=== PATIENT | female | born 1955 | race Caucasian/White ===

== ENCOUNTER 2016-11-24 14:34 | Emergency (ER) | payer OTHER, MEDICARE ==
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
[2016-11-24] MEDS ORDERED: RX INFO: IV CONTRAST WAS GIVEN 1 EACH MISC MISCELLANE PRN (18:04)
[2016-11-24] MEDS ORDERED: SODIUM CHLORIDE 0.9% 1,000 ML IV STA (18:04)
[2016-11-24] MEDS ORDERED: ACETAMINOPHEN IV (For NPO) 1,000 MG in EMPTY BAG 1 BAG IVPB ONE (18:28)
[2016-11-24 18:35] LABS: Basophils # (A) 0.1 k/uL (0-0.2); Basophils % (A) 1 %; CH 29.3; CHCM 34.7; Eosinophils # (A) 0.3 k/uL (0-0.7); Eosinophils % (A) 3 %; HCT 43.9 % (34.0-46.0); HDW 2.77; Luc # (Auto) 0.11; Luc % (Auto) 1; Lymphocytes % (A) 20 %; MCHC 34.2 g/dL (31.0-37.0); MCV 84.8 fL (80.0-100.0); Mean Platelet Volume 7.5; Monocytes # (A) 0.4 k/uL (0-1.0); Monocytes % (A) 4 %; Neutrophils # (A) 7.2 k/uL (1.3-7.7); Neutrophils % (A) 71 %; RBC 5.18 m/uL (3.80-5.40); RDW 12.8 % (11.5-15.5); WBC 10.2 k/uL (3.8-10.6); WBC (Perox) 10.49
[2016-11-24 18:36] LABS: Appearance,Urine Clear (Clear); Bilirubin,Urine Negative (Negative); Glucose,Urine (UA) Negative (Negative); Ketones,Urine Negative (Negative); Leukocyte Esterase,Urine Negative (Negative); Nitrite,Urine Negative (Negative); Protein,Urine Negative (Negative); Specific Gravity,Urine 1.009 (1.001-1.035); UA Billing (MACRO vs. MICRO) CHEM; Urobilinogen,Urine <2.0 mg/dL (<2.0)
[2016-11-24 18:49] LABS: ALT 32 U/L (9-52); AST 22 U/L (14-36); Alkaline Phosphatase 81 U/L (38-126); Anion Gap 11 mmol/L; Blood Urea Nitrogen 11 mg/dL (7-17); Calcium 9.2 mg/dL (8.4-10.2); Carbon Dioxide 26 mmol/L (22-30); Chloride 103 mmol/L (98-107); Glucose 125 mg/dL (74-99); Non-African American GFR(MDRD) >60 (>60 ml/min/1.73 sqM); Potassium 3.6 mmol/L (3.5-5.1); Sodium 140 mmol/L (137-145); Total Bilirubin 0.3 mg/dL (0.2-1.3); Total Protein 6.8 g/dL (6.3-8.2)
[2016-11-24 18:56] LABS: Partial Thromboplastin Time 24.2 sec (22.0-30.0)
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
[2016-11-24 20:31] VITALS: BP 139/79; PULSE 71; RESP 16; TEMP 97.8
== END 2016-11-24 20:31 | disposition left against medical advice (07) ==
LOC: EC 14:34
DX: S82.51XA Displaced fracture of medial malleolus of right tibia, initial encounter for closed fracture (principal); S82.61XA Displaced fracture of lateral malleolus of right fibula, initial encounter for closed fracture; K92.2 Gastrointestinal hemorrhage, unspecified; I10 Essential (primary) hypertension; E78.5 Hyperlipidemia, unspecified; F32.9 Major depressive disorder, single episode, unspecified; Z79.899 Other long term (current) drug therapy; Z86.718 Personal history of other venous thrombosis and embolism; V43.92XA Unspecified car occupant injured in collision with other type car in traffic accident, initial encounter
CPT/HCPCS: 29515; 36415; 80053; 85025; 85610; 85730; 82272; 81003; 71020; 73562; 72050; 72100; 72220; 73060; 73610; 74177; 99285; Q9967; J0131

== ENCOUNTER 2016-12-07 09:25 | Day surgery (SDC) | payer OTHER ==
[2016-12-05 14:57] VITALS: BMI 36.3
[~2016-12-07 09:25] MED LIST: LACTATED RINGERS 1,000 ML IV SCH; LIDOCAINE 1% 20 ML VIAL (10MG/ML) FOR IV START INTRADERMA PRN
[2016-12-07 10:02] VITALS: TEMP 97.3
[2016-12-07] MEDS ORDERED: LIDOCAINE 1% INJ 10MG/ML (20 ML MDV) ONE (10:15)
[2016-12-07] MEDS ORDERED: PROPOFOL 10 MG/ML 20 ML VIAL IV ONE (10:15)
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
--- NOTE | 2016-12-07 10:54 | P.OP ---
Date of Procedure: 12/07/16 Preoperative Diagnosis: GI bleed Postoperative Diagnosis: Antral ulceration Mild esophagitis Poor colonic prep Procedure(s) Performed: EGD Colonoscopy Anesthesia: MAC Surgeon: Atul Rothman Pathology: other (Antrum, esophagus) Description of Procedure: The patient's placed on the endoscopy table in the lateral position. The gastroscope some placed oropharynx passed into the esophagus and into the stomach. The scope was then placed through the pylorus. The first and second portion of the duodenum appeared normal. The scope was then brought back the antrum, there was evidence of some small ulceration. This area was biopsied.. The scope was then retroflexed and the remainder stomach appeared normal. There is no significant hiatal hernia. The GE junction was at 40 cm. The distal esophagus appeared mildly inflamed a biopsies performed. Scope was then withdrawn. Next digital rectal exam was performed which revealed a large amount of copious liquid stool. Flexible colonoscope was then placed throughout the colon. Scope was not passed into the cecum due to the large amount of stool. This point the scope was withdrawn. The distal right colon, transverse colon and descending colon appeared normal. However the view was limited due to the large amount liquid stool. The scope was then brought back into the rectum and this appeared normal. Scope was withdrawn for patient.
[2016-12-07 11:07] VITALS: BP 109/75; PULSE 55; RESP 16
== END 2016-12-07 11:29 | disposition home or self-care (01) ==
LOC: ORWHC2ENDO 09:25
PROVIDERS: ATTEND Surgery
DX: K25.9 Gastric ulcer, unspecified as acute or chronic, without hemorrhage or perforation (principal); K29.50 Unspecified chronic gastritis without bleeding; K20.9 Esophagitis, unspecified; K92.2 Gastrointestinal hemorrhage, unspecified; I10 Essential (primary) hypertension; E78.5 Hyperlipidemia, unspecified; F32.9 Major depressive disorder, single episode, unspecified; Z86.718 Personal history of other venous thrombosis and embolism; Z79.891 Long term (current) use of opiate analgesic; Z79.899 Other long term (current) drug therapy
CPT/HCPCS: 88305; 88342; 45378; 43239; J2001; J2704; 99153

== ENCOUNTER → 2016-12-19 | Outpatient (CLI) | payer MEDICARE, OTHER ==
--- NOTE | 2016-12-19 21:40 | US ---
EXAMINATION TYPE: US venous doppler duplex LE LT DATE OF EXAM: 12/19/2016 12:57 PM COMPARISON: NONE CLINICAL HISTORY: 61-year-old female M79.662 Pain lower extremity left. Pain, edema left leg TECHNIQUE: Duplex Doppler ultrasound examination of the left lower extremity. FINDINGS: SIDE PERFORMED: Left VESSELS IMAGED: External Iliac Vein (EIV) Common Femoral Vein Deep Femoral Vein Greater Saphenous Vein * Femoral Vein Popliteal Vein Small Saphenous Vein * Proximal Calf Veins Posterior tibial veins (* superficial vessels) Left Leg: No evidence of DVT IMPRESSION: No evidence for DVT within the left lower extremity.
== END | disposition home or self-care (01) ==
LOC: RADUSWWP 12:18
PROVIDERS: ATTEND Orthopaedic Surgery
DX: M79.652 Pain in left thigh (principal)

== ENCOUNTER → 2017-01-31 | Outpatient (CLI) | payer MEDICARE, OTHER ==
--- NOTE | 2017-02-01 09:43 | MM ---
Reason for exam: screening (asymptomatic). Last mammogram was performed 6 months ago. History: Patient is postmenopausal. Benign right breast needle localzation of both breasts, December 31, 2013. Benign core biopsy, 2004. Physical Findings: A clinical breast exam by your physician is recommended on an annual basis and results should be correlated with mammographic findings. MG Screening Mammo w CAD Bilateral CC and MLO view(s) were taken. Prior study comparison: August 03, 2016, left breast MG diagnostic mammo LT w CAD. January 05, 2016, left breast MG 3d work up w/cad LT. The breast tissue is heterogeneously dense. This may lower the sensitivity of mammography. Finding: There are typically benign calcifications in both breasts. Previous mammotome biopsy in the right breast. There is a chronic nodularity in the right breast. ASSESSMENT: Benign, BI-RAD 2 RECOMMENDATION: Routine screening mammogram of both breasts in 1 year.
== END | disposition home or self-care (01) ==
LOC: RADMAMWWP 14:02
PROVIDERS: ATTEND Family Medicine
DX: Z12.31 Encounter for screening mammogram for malignant neoplasm of breast (principal)

== ENCOUNTER 2017-04-20 21:23 | Emergency (ER) | payer OTHER ==
[2017-04-20 21:34] VITALS: TEMP 98.1
[2017-04-20] MEDS ORDERED: KETOROLAC 60 MG/2 ML VIAL IM STA (22:28)
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
[2017-04-20 22:57] VITALS: BP 109/72; PULSE 72; RESP 18
== END 2017-04-20 22:57 | disposition home or self-care (01) ==
LOC: EC 21:23
DX: M54.16 Radiculopathy, lumbar region (principal); E78.5 Hyperlipidemia, unspecified; I10 Essential (primary) hypertension; F32.9 Major depressive disorder, single episode, unspecified; Z79.899 Other long term (current) drug therapy
CPT/HCPCS: 99283; 96372; J1885

== ENCOUNTER → 2018-03-02 | Outpatient (CLI) | payer MEDICARE ==
--- NOTE | 2018-03-06 10:02 | MM ---
Reason for exam: screening (asymptomatic). Last mammogram was performed 1 year and 1 month ago. History: Patient is postmenopausal. Benign right breast needle localzation of both breasts, December 31, 2013. Benign core biopsy, 2003. Physical Findings: A clinical breast exam by your physician is recommended on an annual basis and results should be correlated with mammographic findings. MG 3D Screening Mammo W/Cad Bilateral CC and MLO view(s) were taken. Prior study comparison: January 31, 2017, bilateral MG screening mammo w CAD. August 03, 2016, left breast MG diagnostic mammo LT w CAD. The breast tissue is heterogeneously dense. This may lower the sensitivity of mammography. Finding: There are typically benign round, diffuse/scattered and grouped calcifications in both breasts. Previous mammotome biopsy in the right breast. Asymmetric breast tissue right inferior aspect. There is no discrete abnormality. ASSESSMENT: Benign, BI-RAD 2 RECOMMENDATION: Routine screening mammogram of both breasts in 1 year.
== END | disposition home or self-care (01) ==
LOC: RADMAMWWP 07:35
PROVIDERS: ATTEND Family Medicine
DX: Z12.31 Encounter for screening mammogram for malignant neoplasm of breast (principal)
CPT/HCPCS: 77063; 77067

== ENCOUNTER → 2019-05-27 | Outpatient (CLI) | payer OTHER, MEDICARE ==
--- NOTE | 2019-05-27 10:37 | MR ---
EXAMINATION TYPE: MR knee RT wo con DATE OF EXAM: 05/27/2019 COMPARISON: Outside x-ray 05/15/2019 HISTORY: Pain in right knee TECHNIQUE: Multiplanar, multisequence imaging of the right knee is performed without IV contrast. FINDINGS: There is narrowing of the joint spaces with hypertrophic spurring involving the patellofemo ral compartment and both medial and lateral compartments of the knee joint. No erosive changes. Findi ngs compatible with moderate to severe osteoarthritis. There is thinning of the patellar cartilage with reactive marrow signal alteration. Any of the medial and lateral femoral articular cartilage. Findings are compatible with chondromalacia. Nonspecific mild soft tissue edema anteriorly. Quadriceps and patellar tendons intact. A trace amount of fluid in the suprapatellar bursa. Mild inflammatory change in the suprapatellar bursa can be asso ciated with fat pad impingement syndrome. Anterior cruciate, posterior cruciate, medial collateral, lateral collateral ligaments are intact. There is grade 3 abnormal signal the posterior horn of the medial and lateral meniscus compatible wit h tear. No popliteal fossa cyst. IMPRESSION: 1. Osteoarthritis with changes of chondromalacia. 2. A tears involving the posterior horn of the medial and lateral meniscus.
== END | disposition home or self-care (01) ==
LOC: RADMRIMAIN 09:46
PROVIDERS: ATTEND Orthopaedic Surgery
DX: M19.90 Unspecified osteoarthritis, unspecified site (principal); M94.261 Chondromalacia, right knee; S83.241A Other tear of medial meniscus, current injury, right knee, initial encounter; S83.281A Other tear of lateral meniscus, current injury, right knee, initial encounter

== ENCOUNTER → 2019-09-09 | Outpatient (CLI) | payer MEDICARE, OTHER ==
[2019-09-09 12:38] LABS: Basophils # (A) 0.1 k/uL (0-0.2); Basophils % (A) 1 %; Eosinophils # (A) 0.2 k/uL (0-0.7); Eosinophils % (A) 3 %; HCT 41.2 % (34.0-46.0); HGB 14.4 gm/dL (11.4-16.0); Lymphocytes # (A) 1.7 k/uL (1.0-4.8); Lymphocytes % (A) 26 %; MCH 30.4 pg (25.0-35.0); MCHC 35.1 g/dL (31.0-37.0); MCV 86.5 fL (80.0-100.0); Mean Platelet Volume 6.7; Monocytes # (A) 0.4 k/uL (0-1.0); Monocytes % (A) 6 %; Neutrophils % (A) 62 %; Platelet Count 202 k/uL (150-450); RBC 4.76 m/uL (3.80-5.40); RDW 12.6 % (11.5-15.5); WBC 6.5 k/uL (3.8-10.6)
[2019-09-09 12:45] LABS: Potassium 4.1 mmol/L (3.5-5.1)
== END | disposition home or self-care (01) ==
LOC: LABPAT 11:19
PROVIDERS: ATTEND Orthopaedic Surgery
DX: Z01.818 Encounter for other preprocedural examination (principal); M23.91 Unspecified internal derangement of right knee; Z01.812 Encounter for preprocedural laboratory examination
CPT/HCPCS: 36415; 80051; 85025; 93005

== ENCOUNTER 2019-09-13 05:58 | Day surgery (SDC) | payer MEDICARE, OTHER ==
[2019-09-10 15:41] VITALS: BMI 34.4
--- NOTE | 2019-09-12 09:49 | HP ---
HISTORY AND PHYSICAL CHIEF COMPLAINT: Right knee pain. HISTORY OF PRESENT ILLNESS: The patient is a 63-year-old female who presents with progressive right knee pain for the past several months. She has had a previous injection with partial relief. She notes anterior and medial pain along with giving way. She has had a difficult time with walking. PAST MEDICAL HISTORY: Significant for hypertension, hypercholesterolemia, depression, and arthritis. PAST SURGICAL HISTORY: Significant for hysterectomy and tonsillectomy. CURRENT MEDICATIONS: 1. Ditropan. 2. [place]. 3. Tramadol. 4. Gabapentin. She denies drug allergies. FAMILY HISTORY: Negative. SOCIAL HISTORY: Negative for current tobacco or alcohol use. 16 POINT REVIEW OF SYSTEMS: Otherwise reviewed and is noncontributory. PHYSICAL EXAMINATION: On examination, the patient is approximately 5 foot 7, 220 pounds of endomorphic habitus. HEENT: Exam is nonfocal. NECK: Supple. She has painless passive motion of the right hip. Straight leg raise is negative, active motion right knee -10 to 110 degrees of flexion. She has a mild effusion. She is tender about the medial and lateral joint line. Collaterals are stable, Kiki is negative, Chris's elicits medial and lateral pain. Her distal neurovascular exam appears intact in the right lower extremity. MRI report 05/27/2019 of the right knee shows a posterior medial and lateral meniscal tear. IMPRESSION: 1. Right knee internal derangement with symptomatic medial and lateral meniscal tears. 2. Right knee moderate tricompartmental osteoarthrosis. 3. Increased body mass index. RECOMMENDATIONS: I talked to the patient at length regarding her condition along with treatment options. At this point, she is quite symptomatic, having pain and mechanical symptoms despite conservative measures. After a thorough discussion, she opts to proceed with surgery. We will plan to proceed with arthroscopic evaluation with possible partial medial and lateral meniscectomy. Risks and benefits were discussed at length in layman's terms. We will likely perform that as an outpatient procedure. MMODL / IJN: [id number] /
[2019-09-13] MEDS ORDERED: LIDOCAINE 1% 20 ML VIAL (10MG/ML) FOR IV START INTRADERMA PRN (06:02)
[2019-09-13] MEDS ORDERED: HYDROmorphone 0.5 MG/0.5 ML SYRINGE IVP PRN (06:02)
[2019-09-13] MEDS ORDERED: DEXAMETHASONE SOD PHOSPHATE 10 MG/ML 1 ML VIAL IV ONE (06:02)
[2019-09-13] MEDS ORDERED: LACTATED RINGERS 1,000 ML IV SCH (06:02)
[2019-09-13] MEDS ORDERED: SCOPOLAMINE 1.5MG/72HR PATCH TRANSDERM ONE (06:02)
[2019-09-13] MEDS ORDERED: MIDAZOLAM 2 MG/2 ML VIAL IV PRN (06:02)
[2019-09-13] MEDS ORDERED: ONDANSETRON 4 MG/2 ML VIAL IVP ONE (06:02)
[2019-09-13] MEDS ORDERED: MIDAZOLAM 2 MG/2 ML VIAL IVP ONE (07:07)
[2019-09-13] MEDS ORDERED: LIDOCAINE 1% INJ 10MG/ML (20 ML MDV) ONE (08:08)
[2019-09-13] MEDS ORDERED: ePHEDrine SULFATE/0.9% NACL/PF 50 MG/5 ML SYRINGE IV ONE (08:08)
[2019-09-13] MEDS ORDERED: fentaNYL (PF) 50 MCG/ML 2 ML AMP ONE (08:08)
[2019-09-13] MEDS ORDERED: GLYCOPYRROLATE 0.2 MG/ML 2 ML VIAL ONE (08:08)
[2019-09-13] MEDS ORDERED: ALBUTEROL INHALER 60 PUFF/8 GM INHALER INHALATION ONE (08:08)
[2019-09-13] MEDS ORDERED: PROPOFOL 10 MG/ML 20 ML VIAL IV ONE (08:08)
[2019-09-13] MEDS ORDERED: SUCCINYLCHOLINE CHLORIDE 100 MG/5 ML SYR IV ONE (08:08)
[2019-09-13] MEDS ORDERED: KETAMINE 10 MG/ML 20 ML VIAL ONE (08:08)
[2019-09-13] MEDS ORDERED: MIDAZOLAM 2 MG/2 ML VIAL ONE (08:08)
[2019-09-13] MEDS ORDERED: EPINEPHrine (PF) 1 ML in SODIUM CHLORIDE 0.9% IRRIGATIO 3,000 ML IRRIGATION ONE ×8 (08:19)
--- NOTE | 2019-09-13 09:12 | P.OP ---
Date of Procedure: 09/13/19 Preoperative Diagnosis: Right knee internal derangement Postoperative Diagnosis: Right knee posterior medial meniscal tear/posterior lateral meniscal tear/grade 3 chondral injury distal lateral femoral condyle Procedure(s) Performed: Right knee arthroscopic partial medial meniscectomy/partial lateral meniscectomy/lateral femoral chondrectomy Anesthesia: PO Surgeon: Ayan Copeland Estimated Blood Loss (ml): 10 Pathology: none sent Condition: stable Disposition: PACU Indications for Procedure: The patient's a 63-year-old female who presents with progressive right knee pain and mechanical symptoms despite conservative measures. A discussion of the risks and benefits of operative intervention versus continued conservative measures was made with the patient. She opted to proceed with surgery. Operative risks to include infection, neurovascular injury, development of blood clots, possible incomplete resolution of symptoms, possible worsening symptoms and need for subsequent procedures was discussed. Informed consent was obtained. Operative Findings: As below Description of Procedure: The patient was brought to the operating room, and after induction of general anesthesia examined the right knee. Collaterals were stable, Kiki was negative, and posterior drawer was negative. The right lower extremity was prepped and draped in a normal fashion. A superior lateral portal was made through a 3 mm skin incision superior and lateral to the patella. This was used for outflow. A lateral portal was made through a 5 mm vertical skin incision lateral to the patella tendon above the joint line. Diagnostic arthroscopy was performed. On inspection of the medial compartment, and oblique tear involving the posterior horn of the medial meniscus in the white-white junction was noted.. This was debrided back to stable base with straight baskets and a motorized shaver. Grade 2 chondral changes were noted diffusely in the medial compartment. On inspection of the notch, the anterior cruciate ligament appeared to be intact. On inspection of the lateral compartment, a posterior lateral meniscal tear was noted in the white-white junction. This was debrided back to stable base with straight baskets and a motorized shaver. A corresponding grade 3 chondral injury was noted involving the distal lateral portion of the lateral femoral condyle. There was a loose chondral fragment. This was debrided back to stable base with a motorized shaver. Microfracture is performed with a chondral power pick breeching the subchondral surface down to the bone marrow elements. On inspection of the patellofemoral articulation grade 2 chondral changes noted diffusely however no loose chondral fragments were noted. The gutters were clear debris. The knee was then thoroughly irrigated. The portals were closed with Steri-Strips. A sterile dressing was applied in addition to a compression stocking. The patient was awoken from general anesthesia and transferred to recovery room in good condition. Blood loss was estimated at 10 mL. No complications were incurred.
[2019-09-13 09:22] VITALS: TEMP 97
[2019-09-13 09:43] VITALS: RESP 16
[2019-09-13] MEDS ORDERED: HYDROcodone/APAP 5-325MG 1 EACH TAB PO ONE (10:07)
[2019-09-13 10:31] VITALS: BP 121/76; PULSE 94
== END 2019-09-13 10:58 | disposition home or self-care (01) ==
LOC: OR 05:58
PROVIDERS: ATTEND Orthopaedic Surgery
DX: S83.241A Other tear of medial meniscus, current injury, right knee, initial encounter (principal); S83.281A Other tear of lateral meniscus, current injury, right knee, initial encounter; S83.31XA Tear of articular cartilage of right knee, current, initial encounter; X58.XXXA Exposure to other specified factors, initial encounter; I10 Essential (primary) hypertension; E78.00 Pure hypercholesterolemia, unspecified; F32.9 Major depressive disorder, single episode, unspecified; M19.90 Unspecified osteoarthritis, unspecified site; Z90.710 Acquired absence of both cervix and uterus; E78.5 Hyperlipidemia, unspecified; F41.9 Anxiety disorder, unspecified; N32.81 Overactive bladder; G89.29 Other chronic pain; M47.896 Other spondylosis, lumbar region; M17.10 Unilateral primary osteoarthritis, unspecified knee; Z79.891 Long term (current) use of opiate analgesic; Z79.899 Other long term (current) drug therapy
CPT/HCPCS: 29880; J2250; J1100; J0690; J2405; J0171; J2001; J3010; J0330; J2704

== ENCOUNTER 2020-06-16 17:03 | Emergency (ER) | payer MEDICARE, OTHER ==
[2020-06-16] MEDS ORDERED: KETOROLAC 60 MG/2 ML VIAL IM STA (17:44)
[2020-06-16] MEDS ORDERED: CYCLOBENZAPRINE 10MG STARTER 3 TAB BTL PO STA (17:44)
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
[2020-06-16 18:25] VITALS: BP 155/72; PULSE 75; RESP 18; TEMP 98
== END 2020-06-16 18:24 | disposition home or self-care (01) ==
LOC: EC 17:03
DX: G89.29 Other chronic pain (principal); M54.5 Low back pain; F41.9 Anxiety disorder, unspecified; F32.9 Major depressive disorder, single episode, unspecified; E78.5 Hyperlipidemia, unspecified; I10 Essential (primary) hypertension; Z79.899 Other long term (current) drug therapy; Z86.718 Personal history of other venous thrombosis and embolism
CPT/HCPCS: 99283; 96372; J1885

== ENCOUNTER 2020-09-30 16:23 | Emergency (ER) | payer MEDICARE, OTHER ==
[2020-09-30 16:43] VITALS: BP 142/73; PULSE 70; RESP 17; TEMP 97.8
--- NOTE | 2020-09-30 17:33 | XR ---
EXAMINATION TYPE: XR knee complete RT DATE OF EXAM: 09/30/2020 COMPARISON: 11/24/2016 HISTORY: Knee pain TECHNIQUE: 3 views FINDINGS: There is some spurring of the femoral and tibial condyles. Joint spaces are slightly narrow ed. I see no fracture nor dislocation. There is no sign of joint effusion. IMPRESSION: There is hypertrophic mild osteoarthritis without significant change compared to old exam .
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
--- NOTE | 2020-09-30 19:25 | US ---
EXAMINATION TYPE: US venous doppler duplex LE RT DATE OF EXAM: 09/30/2020 7:02 PM COMPARISON: US CLINICAL HISTORY: r/o dvt. Pain right leg. Hx DVT. Patient does not take blood thinner. Hx right knee surgery. SIDE PERFORMED: Right TECHNIQUE: The lower extremity deep venous system is examined utilizing real time linear array sonog yousuf with graded compression, doppler sonography and color-flow sonography. VESSELS IMAGED: Common Femoral Vein Deep Femoral Vein Greater Saphenous Vein * Femoral Vein Popliteal Vein Small Saphenous Vein * Proximal Calf Veins (* superficial vessels) Right Leg: No evidence of DVT in veins imaged at this time from prox calf veins to CFV. Complex area seen at patient's area of pain anterior right knee measurin.1 x 3.0 x 0.6 cm. IMPRESSION: No evidence of deep vein thrombosis in the right leg. Complex fluid collection could be a knee joint effusion.
[2020-09-30] MEDS ORDERED: ACET/COD 300 MG/30 MG STARTER PACK 6 TAB BTL PO STA (20:08)
[2020-09-30] MEDS ORDERED: KETOROLAC 15 MG/ML 1 ML VIAL IM STA (20:08)
== END 2020-09-30 20:19 | disposition home or self-care (01) ==
LOC: EC 16:23
DX: M17.11 Unilateral primary osteoarthritis, right knee (principal); I10 Essential (primary) hypertension; E78.5 Hyperlipidemia, unspecified; F41.9 Anxiety disorder, unspecified; F32.9 Major depressive disorder, single episode, unspecified; Z79.899 Other long term (current) drug therapy; Z98.890 Other specified postprocedural states; Z86.718 Personal history of other venous thrombosis and embolism
CPT/HCPCS: 73562; 93971; 99284; 96372; J1885

== ENCOUNTER → 2021-04-21 | Outpatient (CLI) | payer OTHER | END | disposition home or self-care (01) | LOC: RADXRMAIN 11:49 | PROVIDERS: ATTEND Emergency Medicine | DX: Z53.9 Procedure and treatment not carried out, unspecified reason (principal) ==

== ENCOUNTER → 2021-04-21 | Outpatient (CLI) | payer OTHER ==
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
--- NOTE | 2021-04-21 14:13 | XR ---
EXAMINATION TYPE: XR ankle complete bilateral, XR foot complete bilateral DATE OF EXAM: 04/21/2021 CLINICAL HISTORY: Injury with pain TECHNIQUE: Frontal, lateral and oblique images of the bilateral ankles and the are obtained. COMPARISON: None. FINDINGS: There is no acute fracture/dislocation evident in either ankle. The ankle mortise appears within normal limits bilaterally. Symmetric mild subcutaneous edema is present. There is no acute fracture or dislocation evident in either foot. There is sclerosis and deformity to the medial distal aspect of the left navicular bone could reflect product of old trauma or avascular necrosis. Sclerotic cortex second distal diaphysis of the metatarsal left foot. Flexion and varus po sitioning distal fourth and fifth toes right foot. Overlying soft tissue is unremarkable bilaterally. IMPRESSION: There is no acute fracture or dislocation in either ankle or foot.
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
== END | disposition home or self-care (01) ==
LOC: RADUSWWP 11:58
PROVIDERS: ATTEND Emergency Medicine
DX: S80.11XA Contusion of right lower leg, initial encounter (principal); M25.571 Pain in right ankle and joints of right foot; M25.572 Pain in left ankle and joints of left foot; M25.561 Pain in right knee; M25.562 Pain in left knee
CPT/HCPCS: 93970

== ENCOUNTER 2021-04-22 22:56 | Emergency (ER) | payer MEDICARE, OTHER ==
[2021-04-22 22:59] VITALS: BP 160/78; PULSE 66; RESP 18; TEMP 97.5
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
[2021-04-23] MEDS: HYDROmorphone 1 MG/ML 1 ML SYRINGE IM STA (00:43)
[2021-04-23] MEDS: KETOROLAC 15 MG/ML 1 ML VIAL IM STA (00:44)
[2021-04-23] MEDS: ACET/COD 300 MG/30 MG STARTER PACK 6 TAB BTL PO STA (00:45)
== END 2021-04-23 00:53 | disposition home or self-care (01) ==
LOC: EC 22:56
DX: M25.561 Pain in right knee (principal); E78.5 Hyperlipidemia, unspecified; F32.9 Major depressive disorder, single episode, unspecified; I10 Essential (primary) hypertension; Z90.710 Acquired absence of both cervix and uterus; Z90.09 Acquired absence of other part of head and neck; Z86.718 Personal history of other venous thrombosis and embolism
CPT/HCPCS: 99283; 96372 ×2; J1170; J1885

== ENCOUNTER → 2021-10-22 | Outpatient (CLI) | payer MEDICARE, OTHER ==
--- NOTE | 2021-10-25 10:44 | MM ---
Reason for exam: screening (asymptomatic). Last mammogram was performed 3 years and 8 months ago. History: Patient is postmenopausal. Benign right breast needle localzation of both breasts, December 31, 2013. Benign core biopsy, 2004. Physical Findings: A clinical breast exam by your physician is recommended on an annual basis and results should be correlated with mammographic findings. MG Screening Mammo w CAD Bilateral CC and MLO view(s) were taken. Prior study comparison: March 02, 2018, bilateral MG 3d screening mammo w/cad. January 31, 2017, bilateral MG screening mammo w CAD. The breast tissue is heterogeneously dense. This may lower the sensitivity of mammography. New asymmetric density upper outer right breast zone A. This finding is changed when compared with previous exams. ASSESSMENT: Incomplete: need additional imaging evaluation, BI-RAD 0 RECOMMENDATION: Special view mammogram of the right breast. If lesion persists on supplemental views, image directed ultrasound is recommended. [facility] will attempt to contact patient to return for supplemental views and ultrasound if indicated.
== END | disposition home or self-care (01) ==
LOC: RADMAMWWP 07:02
PROVIDERS: ATTEND Family Medicine
DX: Z12.31 Encounter for screening mammogram for malignant neoplasm of breast (principal); Z78.0 Asymptomatic menopausal state
CPT/HCPCS: 77067

== ENCOUNTER → 2022-06-03 | Outpatient (CLI) | payer MEDICARE, OTHER ==
--- NOTE | 2022-06-03 11:41 | MM ---
Reason for Exam: Follow-up at short interval from prior study. Last screening mammogram was performed 7 month(s) ago. Patient History: Menarche at age 11. First Full-Term at age 24. Hysterectomy at age 31. Postmenopausal. Benign Core Biopsy. 12/31/2013, Bilateral Benign Excisional Biopsy. Risk Values: Nichole 5 year model risk: 2.8%. NCI Lifetime model risk: 9.5%. Prior Study Comparison: 11/29/2013 Right Diagnostic Mammogram, [facility]. 11/29/2013 Right Diagnostic Ultrasound, [facility]. 08/29/2014 Right Diagnostic Mammogram, [facility]. 01/05/2016 Left Diagnostic Mammogram, [facility]. 08/03/2016 Left Diagnostic Mammogram, [facility]. 01/31/2017 Bilateral Screening Mammogram, [facility]. 03/02/2018 Bilateral Screening Mammogram, [facility]. 10/22/2021 Bilateral Screening Mammogram, [facility]. 11/23/2021 Right Diagnostic Mammogram, [facility]. Tissue Density: Right: The breast tissue is heterogeneously dense. This may lower the sensitivity of mammography. Findings: Analyzed By CAD. There is mammotome biopsy clip in the right breast redemonstrated. Some scattered and grouped benign-appearing round calcifications bilaterally are redemonstrated. No suspicious new mass or distortion in the right breast. Overall Assessment: Benign, BI-RAD 2 Management: Screening Mammogram of both breasts in 5 months. Back on annual schedule. Results were given to the patient verbally at the time of exam. Electronically signed and approved by: Odin Harper M.D.
== END | disposition home or self-care (01) ==
LOC: RADMAMWWP 10:56
PROVIDERS: ATTEND Family Medicine
DX: R92.8 Other abnormal and inconclusive findings on diagnostic imaging of breast (principal); Z78.0 Asymptomatic menopausal state
CPT/HCPCS: 77065

== ENCOUNTER 2022-12-07 21:31 | Emergency (ER) | payer MEDICARE, OTHER ==
[2022-12-07 21:43] VITALS: BP 109/61; PULSE 69; RESP 18; TEMP 97.8
[2022-12-07] MEDS ORDERED: ACET/COD 300 MG/30 MG STARTER PACK 6 TAB BTL PO STA (22:04)
[2022-12-07] MEDS ORDERED: KETOROLAC 15 MG/ML 1 ML VIAL IM STA (22:04)
[2022-12-07] MEDS ORDERED: HYDROcodone/APAP 5-325MG 1 EACH TAB PO STA (22:04)
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
== END 2022-12-07 22:24 | disposition home or self-care (01) ==
LOC: EC 21:31
DX: G89.29 Other chronic pain (principal); M25.561 Pain in right knee; M17.11 Unilateral primary osteoarthritis, right knee; E78.5 Hyperlipidemia, unspecified; I10 Essential (primary) hypertension; F41.9 Anxiety disorder, unspecified; F32.A Depression, unspecified; Z79.899 Other long term (current) drug therapy
CPT/HCPCS: 99282; 96372; J1885

== ENCOUNTER 2024-03-11 10:16 | Emergency (ER) | payer MEDICARE, OTHER ==
[2024-03-11 10:37] VITALS: TEMP 98.2
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
[2024-03-11 11:46] LABS: ALT 25 U/L (4-34); AST 23 U/L (14-36); African American GFR (CKD) >90 (>60 ml/min/1.73 sqM); Alkaline Phosphatase 66 U/L (38-126); Anion Gap 4 mmol/L; Blood Urea Nitrogen 21 mg/dL (7-17); Calcium 9.1 mg/dL (8.4-10.2); Carbon Dioxide 28 mmol/L (22-30); Chloride 106 mmol/L (98-107); Glucose 134 mg/dL (74-99); Magnesium 1.8 mg/dL (1.6-2.3); Non-African American GFR(CKD) >90 (>60 ml/min/1.73 sqM); Potassium 4.4 mmol/L (3.5-5.1); Sodium 138 mmol/L (137-145); Total Bilirubin 0.4 mg/dL (0.2-1.3); Total Protein 6.3 g/dL (6.3-8.2)
[2024-03-11 11:53] LABS: Basophils # (A) 0.1 k/uL (0-0.2); Basophils % (A) 1 %; Eosinophils # (A) 0.1 k/uL (0-0.7); Eosinophils % (A) 2 %; HCT 44.9 % (34.0-46.0); HGB 15.6 gm/dL (11.4-16.0); Lymphocytes # (A) 1.2 k/uL (1.0-4.8); Lymphocytes % (A) 15 %; MCH 29.7 pg (25.0-35.0); MCHC 34.7 g/dL (31.0-37.0); MCV 85.5 fL (80.0-100.0); Mean Platelet Volume 8.1; Monocytes # (A) 0.4 k/uL (0-1.0); Monocytes % (A) 5 %; Neutrophils % (A) 76 %; Platelet Count 179 k/uL (150-450); RBC 5.25 m/uL (3.80-5.40); RDW 12.6 % (11.5-15.5); WBC 7.9 k/uL (3.8-10.6)
--- NOTE | 2024-03-11 12:05 | CT ---
EXAMINATION TYPE: CT brain wo con CT DLP: 1036.4 mGycm, Automated exposure control for dose reduction was used. DATE OF EXAM: 03/11/2024 11:41 AM COMPARISON: . CLINICAL INDICATION:Female, 68 years old with history of dizziness, dizziness TECHNIQUE: Brain: Axial CT images of the brain were obtained with coronal and sagittal reformats created and rev iewed. Contrast used: None. Oral contrast used: None. FINDINGS: Brain: Extra-axial spaces: No abnormal extra-axial fluid collections. Ventricular system: Within normal limits Cerebral parenchyma: No acute intraparenchymal hemorrhage or mass effect. The harley-white junction is well differentiated. Cerebellum: Unremarkable. Mass effect: No evidence of midline shift. Intracranial vasculature: unremarkable Soft tissues: Normal. Calvarium/osseous structures: No depressed skull fracture. Paranasal sinuses and mastoid air cells: Mild scattered paranasal sinus disease. Visualized orbits: Orbital contents are intact. IMPRESSION: No acute intracranial process.
[2024-03-11 12:06] LABS: INR 0.9 (<1.2)
[2024-03-11 12:09] VITALS: RESP 16
[2024-03-11 12:09] LABS: Appearance,Urine Clear (Clear); Bacteria,Urine Rare /hpf; Bilirubin,Urine Negative (Negative); Blood,Urine Negative (Negative); Color,Urine Light Yellow; Glucose,Urine (UA) Negative (Negative); Ketones,Urine Negative (Negative); Leukocyte Esterase,Urine Small (Negative); Mucus,Urine Rare /hpf; Nitrite,Urine Negative (Negative); PH, Urine 6.5 (5.0-8.0); Protein,Urine Negative (Negative); RBC,Urine 2 /hpf (0-5); Specific Gravity,Urine 1.019 (1.001-1.035); Squamous Epithelial Cell,Urine 4 /hpf (0-4); Urobilinogen,Urine <2.0 mg/dL (<2.0); WBC,Urine 5 /hpf (0-5)
[2024-03-11] MEDS: SODIUM CHLORIDE 0.9% 1,000 ML IV STA (12:30)
[2024-03-11] MEDS: MECLIZINE 12.5 MG TAB PO STA (12:30)
[2024-03-11 14:27] VITALS: BP 129/78; PULSE 76
== END 2024-03-11 13:56 | disposition home or self-care (01) ==
LOC: EC 10:16
DX: R42 Dizziness and giddiness (principal); I10 Essential (primary) hypertension; E78.00 Pure hypercholesterolemia, unspecified; Z79.899 Other long term (current) drug therapy
CPT/HCPCS: 36415; 70450; 80053; 81001; 83735; 84484; 85025; 85610; 93005; 96360; 99284

== ENCOUNTER 2024-05-27 11:45 | Emergency (ER) | payer MEDICARE, OTHER ==
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
[2024-05-27 12:43] VITALS: BP 145/80; PULSE 62; RESP 18; TEMP 98.1
== END 2024-05-27 13:45 | disposition home or self-care (01) ==
LOC: EC 11:45
DX: K08.89 Other specified disorders of teeth and supporting structures (principal); R59.1 Generalized enlarged lymph nodes
CPT/HCPCS: 99283